=== PATIENT | male | born 1950 | race Caucasian/White ===

== ENCOUNTER → 2018-12-05 | Outpatient (CLI) | payer MEDICARE ==
[~2018-12-05] MED LIST: OMNIPAQUE 350 MG/ML, 50 ML BOTTLE ONE
== END | disposition home or self-care (01) ==
LOC: RAD 10:36
PROVIDERS: ATTEND Specialist
DX: I63.89 Other cerebral infarction (principal); R25.3 Fasciculation; R47.1 Dysarthria and anarthria
CPT/HCPCS: 0042T; Q9967